=== PATIENT | female | born 1980 | race African-American/Black ===

== ENCOUNTER 2024-01-16 11:06 | Emergency (ER) | payer BC, OTHER ==
[2024-01-16 12:59] LABS: #Basophils 0.01 10x3/uL (0.0-0.2); #Eosinophils 0.02 10x3/uL (0.0-0.5); #Monocytes 0.16 10x3/uL (0.0-1.1); #Neutrophils 2.35 10x3/uL (1.5-8.4); %Basophils 0.3 % (0.0-2.0); %Eosinophils 0.6 % (0.0-6.0); %Monocytes 4.4 % (0.0-10.0); %Neutrophils 64.7 % (40.0-75.0); Hematocrit 36.1 % (34.9-44.5); Hemoglobin 12.9 g/dL (12.0-15.5); Mean Corpuscular HGB CONC 35.7 g/dL (32.0-36.0); Mean Corpuscular Hemoglobin 31.5 pg (27.0-33.0); Mean Corpuscular Volume 88.3 fL (81.6-98.3); Mean Platelet Volume 9.7 fL (7.4-10.4); Platelet Count 242 10x3/uL (150-450); RBC Distribution Width 11.9 % (11.5-14.5); Red Blood Cell (RBC) Count 4.09 10x6/uL (3.90-5.03); White Blood Cell (WBC) Count 3.6 10x3/uL (3.5-10.5)
[2024-01-16 13:04] LABS: ALT (SGPT) 11 U/L (8-55); AST (SGOT) 12 U/L (5-34); Albumin 4.4 g/dL (3.5-5.0); Alkaline Phosphatase 44 U/L (40-110); Anion Gap 12 mmol/L (10-20); BUN (Urea Nitrogen) 6 mg/dL (7.0-18.7); Bilirubin, Total 0.8 mg/dL (0.2-1.2); Calc. Creatinine Clearance 0 mL/min (70-130); Calcium 9.7 mg/dL (7.8-10.44); Carbon Dioxide 23 mmol/L (22-29); Chloride 108 mmol/L (98-107); Estimated GFR 71; Globulin 2.5 g/dL (2.4-3.5); Glucose 116 mg/dL (70-105); Potassium 4.2 mmol/L (3.5-5.1); Protein, Total 6.9 g/dL (6.0-8.3); Sodium 139 mmol/L (136-145)
[2024-01-16 13:08] LABS: Troponin I Less than 0.010 ng/mL (< 0.028)
[2024-01-16] MEDS ORDERED: Ketorolac Tromethamine 30 MG (1 mL) VIAL ONE (13:19)
[2024-01-16 13:37] LABS: BHCG - Serum Negative (NEGATIVE); Pregs Control Background? CLEAR/WHITE (CLR/WHITE); Pregs Control Bar Appear? YES (CONTROL BAR)
== END 2024-01-16 15:28 | disposition home or self-care (01) ==
LOC: CSHERS 11:06
DX: R09.1 Pleurisy (principal); Z55.6 Problems related to health literacy
CPT/HCPCS: 71045; 80053; 83690; 83880; 84484; 84703; 85025; 85379; 87428; 93005; 96374; J1885

== ENCOUNTER 2024-10-11 03:32 | Inpatient (IN) | payer BC, OTHER, SELFPAY ==
[2024-10-11 04:12] VITALS: BMI 27.9
[2024-10-11 05:11] LABS: Fetal Membranes Rupture RUPTURE DETECTED (No Rupture)
[2024-10-11] MEDS ORDERED: hydrALAZINE 20 MG/ML VIAL SLOW IVP PRN (05:17)
[2024-10-11] MEDS ORDERED: Lidocaine 1% (PF) 30 ML VIAL SC PRN (05:17)
[2024-10-11] MEDS ORDERED: Ondansetron PF 4 MG/2 ML Vial IVP PRN ×4 (05:17→19:39)
[2024-10-11] MEDS ORDERED: Diphenoxylate HCl/Atropine Tablet PO PRN ×2 (05:17)
[2024-10-11] MEDS ORDERED: Acetaminophen 500 MG TAB PO PRN (05:17)
[2024-10-11] MEDS ORDERED: Carboprost 250 MCG/ML AMP IM PRN (05:17)
[2024-10-11] MEDS ORDERED: Tranexamic Acid 1,000 MG/10 ML VIAL IVP PRN (05:17)
[2024-10-11] MEDS ORDERED: Ibuprofen 800 MG TAB PO PRN (05:17)
[2024-10-11] MEDS ORDERED: Oxytocin 30 units/NS 500 ML 500 ML IV SCH (05:30)
[2024-10-11] MEDS: Penicillin G Potassium 5 MILL.UNITS in Sodium Chloride 0.9% 100 ML IVPB SCH (05:51)
[2024-10-11 06:02] LABS: Hematocrit 31.1 % (34.9-44.5); Hemoglobin 11.6 g/dL (12.0-15.5); Mean Corpuscular Hemoglobin 32.6 pg (27.0-33.0); Mean Corpuscular Volume 87.4 fL (81.6-98.3); Platelet Count 199 10x3/uL (150-450); Red Blood Cell (RBC) Count 3.56 10x6/uL (3.90-5.03); White Blood Cell (WBC) Count 7.41 10x3/uL (3.5-10.5)
[2024-10-11 06:35] LABS: Hep B Surf Ag - L&D Non-Reactive S/CO (NonReactive)
[2024-10-11 06:36] LABS: Syphilis Antibody Index 0.11 S/CO (<1.00 Non-Reactive)
[2024-10-11] MEDS: Penicillin G 2.5 MILL.units 2.5 MILL.UNITS in Premix 1 BAG IVPB SCH (10:31)
[2024-10-11] MEDS: fentaNYL/Ropivacaine Epidural 100 ML ONE (12:56)
[2024-10-11] MEDS ORDERED: diphenhydrAMINE 50 MG/ML VIAL IVP PRN ×2 (13:47→19:39)
[2024-10-11] MEDS ORDERED: Acetaminophen 325 MG TAB PO PRN (13:47)
[2024-10-11] MEDS: Oxytocin 30 units/NS 500 ML 500 ML IV SCH (13:55)
[2024-10-11] MEDS ORDERED: Communication Order-Pharmacy FS SCH ×2 (14:00→19:45)
[2024-10-11] MEDS ORDERED: fentaNYL 2 mcg/Ropivacaine 0.2% Epidural 100 ML CADD EPIDURAL SCH (14:00)
[2024-10-11] MEDS: Methylergonovine 0.2 MG/ML VIAL IM PRN (19:08)
[2024-10-11 19:25] LABS: Analyzer IN Cardio CS NICU; Critical Notified By: CP.PH; pH (Cord, venous) 7.315 (7.250-7.350)
[2024-10-11 19:27] LABS: Analyzer IN Cardio CS NICU; Critical Notified By: CP.PH
[2024-10-11] MEDS ORDERED: Ketorolac Tromethamine 30 MG (1 mL) VIAL IVP PRN (19:39)
[2024-10-11] MEDS ORDERED: Meperidine HCl/PF 25 MG (1 mL) VIAL SLOW IVP PRN (19:39)
[2024-10-11] MEDS: hydrALAZINE 20 MG/ML VIAL SLOW IVP PRN (20:30)
[2024-10-11] MEDS: Ketorolac Tromethamine 30 MG (1 mL) VIAL IVP SCH (20:43)
[2024-10-11] MEDS: ADMIXTURE FEE IVPB SCH (20:48)
[2024-10-11] MEDS: SODIUM CHLORIDE IVPB SCH (20:48)
[2024-10-11] MEDS: GENTAMICIN SULFATE IVPB SCH (20:48)
[2024-10-11] MEDS: Magnesium Sulfate 20 gm/500 ml 20 GM/500 ML BAG ONE (20:54)
[2024-10-11 21:32] LABS: Protein, Urine Random Quant Less than 10 mg/dL (1-14)
[2024-10-11] MEDS: Clindamycin/D5W 900 MG in Premix 1 BAG IVPB SCH (22:08)
[2024-10-11] MEDS: Dexamethasone 10 MG/ML VIAL ONE (22:29)
[2024-10-11] MEDS: Azithromycin 500 MG VIAL ONE (22:29)
[2024-10-11] MEDS: CEFAZOLIN 2 GM VIAL ONE (22:29)
[2024-10-11] MEDS: Ondansetron PF 4 MG/2 ML Vial ONE (22:29)
[2024-10-11] MEDS: Tranexamic Acid 1,000 MG/10 ML VIAL ONE (22:30)
[2024-10-11 23:03] LABS: #Basophils Less than 0.03 10x3/uL (0.0-0.2); #Eosinophils Less than 0.03 10x3/uL (0.0-0.5); #Monocytes 0.67 10x3/uL (0.0-1.1); #Neutrophils 10.92 10x3/uL (1.5-8.4); %Basophils 0.2 % (0.0-2.0); %Eosinophils 0.0 % (0.0-6.0); %Lymphocytes 9.5 % (18.0-47.0); %Monocytes 5.2 % (0.0-10.0); %Neutrophils 84.6 % (40.0-75.0); Hematocrit 29.8 % (34.9-44.5); Hemoglobin 11.1 g/dL (12.0-15.5); Mean Corpuscular Hemoglobin 32.6 pg (27.0-33.0); Mean Corpuscular Volume 87.6 fL (81.6-98.3); Platelet Count 191 10x3/uL (150-450); Red Blood Cell (RBC) Count 3.40 10x6/uL (3.90-5.03); White Blood Cell (WBC) Count 12.89 10x3/uL (3.5-10.5)
[2024-10-11 23:19] LABS: ALT (SGPT) 8 U/L (Less than 34); AST (SGOT) 18 U/L (11-34); Albumin 2.6 g/dL (3.1-4.5); Alkaline Phosphatase 142 U/L (40-110); Anion Gap 12 mmol/L (10-20); BUN (Urea Nitrogen) 6 mg/dL (7.0-18.7); Bilirubin, Total 0.8 mg/dL (0.3-1.2); Calc. Creatinine Clearance 102 mL/min (70-130); Calcium 8.0 mg/dL (7.8-10.44); Carbon Dioxide 17 mmol/L (22-29); Chloride 109 mmol/L (98-107); Globulin 2.8 g/dL (2.4-3.5); Glucose 96 mg/dL (70-105); Potassium 3.4 mmol/L (3.5-5.1); Sodium 135 mmol/L (136-145)
[2024-10-12] MEDS ORDERED: Calcium Gluc 4.6 MEQ/10 ML (100 MG/ML) SLOW IVP PRN (04:50)
[2024-10-12] MEDS: Magnesium Sulfate 20 gm/500 ml 20 GM/500 ML BAG IVPB SCH (04:57)
[2024-10-12] MEDS: Magnesium Sulfate 20 gm/500 ml 20 GM/500 ML BAG ONE (19:20)
[2024-10-12] MEDS: Acetaminophen 500 MG TAB PO SCH (19:20)
[2024-10-12] MEDS ORDERED: HYDROcodone/Acetaminophen 5/325 mg Tablet PO PRN (19:46)
[2024-10-12] MEDS ORDERED: diphenhydrAMINE 25 MG CAP PO PRN (19:46)
[2024-10-12] MEDS ORDERED: Acetaminophen 325 MG TAB PO PRN (19:46)
[2024-10-12] MEDS ORDERED: Bisacodyl 10 MG SUPP PR PRN (19:46)
[2024-10-12] MEDS ORDERED: Ondansetron PF 4 MG/2 ML Vial IVP PRN (19:46)
[2024-10-12] MEDS ORDERED: hydrALAZINE 20 MG/ML VIAL SLOW IVP PRN (19:46)
[2024-10-12] MEDS ORDERED: Boostrix 0.5 ML (Tdap) VIAL (>/=7 yrs of age) IM ONE (19:46)
[2024-10-12] MEDS ORDERED: Lanolin Ointment 7 GM TUBE TOP PRN (19:46)
[2024-10-12] MEDS: Ibuprofen 800 MG TAB PO SCH (20:00)
[2024-10-12] MEDS: Ferrous Sulfate 325 MG TAB PO SCH (20:01)
[2024-10-12] MEDS: Simethicone Chewable 80 MG TAB PO PRN (21:23)
[2024-10-12] MEDS: HYDROcodone/Acetaminophen 5/325 mg Tablet PO PRN (23:50)
[2024-10-13 06:17] LABS: Platelet Count 156 10x3/uL (150-450)
[2024-10-13 06:26] LABS: Hematocrit 25.6 % (34.9-44.5); Hemoglobin 9.0 g/dL (12.0-15.5); Mean Corpuscular Hemoglobin 31.5 pg (27.0-33.0); Mean Corpuscular Volume 89.5 fL (81.6-98.3); Red Blood Cell (RBC) Count 2.86 10x6/uL (3.90-5.03); White Blood Cell (WBC) Count 7.44 10x3/uL (3.5-10.5)
[2024-10-13] MEDS: Ferrous Sulfate 325 MG TAB PO SCH (09:35)
[2024-10-15 11:39] VITALS: BP 125/71; TEMP 98.2
== END 2024-10-15 16:50 | disposition home or self-care (01) | DRG 788 ==
LOC: CSHLD/OP 03:32 → CSHLD 05:44 → CSHANTE 10-12 20:42
PROVIDERS: ADMIT Student in an Organized Health Care Education/Training Program; ATTEND Student in an Organized Health Care Education/Training Program
PROC: 10D00Z1 Extraction of Products of Conception, Low, Open Approach (ICD-10-PCS; principal; 2024-10-11)
PROC: 3E03329 Introduction of Other Anti-infective into Peripheral Vein, Percutaneous Approach (ICD-10-PCS; 2024-10-11)
DX: O98.82 Other maternal infectious and parasitic diseases complicating childbirth (principal); O76 Abnormality in fetal heart rate and rhythm complicating labor and delivery; Z3A.39 39 weeks gestation of pregnancy; Z37.0 Single live birth; Z79.899 Other long term (current) drug therapy; Z79.82 Long term (current) use of aspirin
CPT/HCPCS: 36415; 51702; 80053; 82570; 82805; 84112; 84156; 85027; 86780; 86850; 86900; 86901; 87340; 99285; J0360; J1100; J1580; J1885; J2210; J2274; J2405; J2540; J2550; J2590; J3475; J3490; J7120